=== PATIENT | male | born 1970 | race Caucasian/White ===

== ENCOUNTER → 2020-04-24 09:06 | Outpatient (BNVA) | payer BC, SELFPAY | PROVIDERS: PCP Internal Medicine; Visit Provider Urology | DX: N40.1 Benign prostatic hyperplasia with lower urinary tract symptoms (principal); R35.1 Nocturia; N20.0 Calculus of kidney | CPT/HCPCS: 51798; 81002 ==

== ENCOUNTER 2022-11-08 09:30 | Emergency (ER) | payer BC, SELFPAY ==
--- NOTE | ~2022-11-08 | CT_ITS ---
EXAMINATION: CT CERVICAL SPINE WITHOUT CONTRAST CLINICAL INFORMATION: Status post fall, dizziness. COMPARISON: None available. TECHNIQUE: Multiple axial images of the cervical spine were obtained without the demonstration of intravenous contrast. Coronal and sagittal reformatted images were obtained. This CT examination was performed using dose optimization techniques as appropriate, variously including the following: *Automated exposure control *Adjustment of mA and/or kV according to patient size (this includes techniques or standardized protocols for targeted exams where dose is matched to indication/reason for exam; i.e. extremities or head) *Use of iterative reconstruction technique DLP: 543.63 mGy-cm FINDINGS: There is straightening of the normal cervical lordosis with normal spinal alignment. Mild to moderate degenerative disc disease is seen from C4-C5 to C6-C7 with disc space narrowing and marginal osteophyte formation. Mild bilateral neural foraminal narrowing is seen at C6-C7. The odontoid process is intact with mild articulating degenerative changes. The facet joints are unremarkable. The spinous and transverse processes are intact. The cervical soft tissues are unremarkable. The visualized thyroid gland is unremarkable. The lung apices are clear. CT/CT cervical spine wo IV con IMPRESSION: 1. Straightening of the normal cervical lordosis may be secondary to positioning and/or muscle spasm. 2. Mild to moderate multilevel degenerative changes without acute abnormality.
--- NOTE | ~2022-11-08 | CT_ITS ---
EXAMINATION: CT HEAD WITHOUT CONTRAST CLINICAL INFORMATION: Status post fall, dizziness. COMPARISON: None available. TECHNIQUE: Contiguous axial imaging was performed from the skull base to vertex without intravenous administration of contrast. Coronal and sagittal reformatted images were obtained. This CT examination was performed using dose optimization techniques as appropriate, variously including the following: *Automated exposure control *Adjustment of mA and/or kV according to patient size (this includes techniques or standardized protocols for targeted exams where dose is matched to indication/reason for exam; i.e. extremities or head) *Use of iterative reconstruction technique DLP: 847.87 mGy-cm FINDINGS: The cortical sulci are normal. The lateral ventricles are symmetrical. Incidental patent cava septum pellucidum et vergae. The third and fourth ventricles are in their normal midline position. The basilar and prepontine cisterns are unremarkable. There is no acute intra or extracerebral abnormality. There is no mass effect or midline shift. Sections through the bony calvarium are unremarkable. The paranasal sinuses are clear. The bony orbits and orbital contents are unremarkable. CT/CT head/brain wo IV con IMPRESSION: No acute intracranial pathology.
--- NOTE | ~2022-11-08 | XR_ITS ---
EXAMINATION: XR HIP, RIGHT CLINICAL INFORMATION: Right hip pain. COMPARISON: None available. TECHNIQUE: Two views of the right hip. FINDINGS: Mild right hip degenerative joint changes are seen superiorly in the joint is no acute fracture or dislocation. The bony pelvis is intact. The soft tissues are unremarkable. XR/XR hip RT w PEL1V IMPRESSION: Mild right hip osteoarthritis. No acute fracture.
[2022-11-08 09:32] VITALS: BP 151/100; PULSE 68; RESP 16; TEMP 36; O2SAT 97; BMI 30.7
--- NOTE | 2022-11-08 11:32 | ED_ITS ---
HPI - General Adult General Chief complaint: Fall Stated complaint: Fall off ladder T-1/Dizziness Time Seen by Provider: 11/08/22 11:31 Source: patient Mode of arrival: ambulatory Limitations: no limitations History of Present Illness HPI narrative: Patient is a 52-year-old male with history of BPH presenting to the emergency department with complaint of dizziness and right hip pain after falling 3-3.5 feet off of a ladder yesterday. States that his foot slipped and he fell onto his right side. He is unsure if he hit his head but denies loss of consciousness and states that he got up immediately and went inside his house. Reports that he was able to ambulate yesterday but when he woke this morning his right hip pain had increased. He also reports new onset dizziness since this morning. Denies headache or changes in vision. Denies neck or back pain. He is not anticoagulated. He took ibuprofen at home prior to arrival this morning. complaint: right hip pain, dizziness Onset (ago): hour(s) Location: pelvis Radiation: non-radiation Severity: severe Severity scale (1-10): 10 Quality: aching Pain Consistency: constant Relieving factors: rest Exacerbating factors: movement Associated symptoms: other (dizziness) Treatments prior to arrival: NSAID Related Data Previous Rx's Medication Instructions Recorded tamsulosin 0.4 mg capsule 0.4 mg PO BEDTIME #30 caps 04/24/20 vardenafil 10 mg tablet 10 mg PO DAILY PRN sexual activity 10/27/20 30 days #6 tabs meclizine 25 mg tablet 25 mg PO BID PRN dizziness #10 tabs 11/08/22 Allergies Allergy/AdvReac Type Severity Reaction Status Date / Time No Known Allergies Allergy Unverified 12/20/19 15:41 Review of Systems Review of Systems: As per HPI. Yes all other systems are reviewed and are negative Constitutional: Constitutional: Reports as per HPI [facility] Past Medical History Medical History BPH associated with nocturia History of renal calculi Renal stone Social History Social History Alcohol intake: never Smoked in Last 30 Days: No Use of substances other than those prescribed or required for medical reasons: No Advance Directives: No Advance Directives Information Provided: No Physical Exam ED Vital Signs: Vital Signs - 24 hr 11/08/22 09:32 11/08/22 12:08 11/08/22 12:19 Temperature 96.8 F 98.2 F 98.1 F Pulse Rate 68 67 69 Respiratory Rate 16 14 16 Blood Pressure 151/100 H 128/78 123/68 Pulse Oximetry 97 95 98 Oxygen Delivery Method Room Air Room Air 11/08/22 12:19 Temperature 98.1 F Pulse Rate 66 Respiratory Rate 16 Blood Pressure 123/68 Pulse Oximetry 96 Oxygen Delivery Method Room Air BMI result Body Mass Index 30.7 Vital signs have been reviewed and appear to be correct. Blood pressure elevated. Heart rate normal. Respiratory rate normal. Temperature normal. Oxygen saturation normal. Const General: cooperative, healthy appearing and no acute distress Orientation/consciousness: oriented to person, oriented to place, oriented to time and patient oriented x3 Limitations: no limitations HENMT Head: Yes normal to inspection, Yes No palpable skull fracture present, Yes normocephalic, Yes atraumatic, No Jennings's sign, Yes contusion, No raccoon eyes and No periorbital ecchymosis Ears: external ears normal and TM's normal bilaterally General nose exam: Normal external nose present, Normal nares present and Normal septum present Face and sinus: Yes face symmetric Mouth: oropharynx normal and moist mucous membranes Throat: Yes uvula midline Eyes Pupils: Equal, round and reactive pupils present Neck Neck: Yes normal visual inspection and Yes supple Resp Effort & Inspection: normal respiratory effort and able to speak in complete sentences Auscultation: clear to auscultation bilaterally Cardio Rate: regular rate Rhythm: regular rhythm Heart sounds: S1 normal heart sound present and S2 normal heart sound present GI Palpation (GI): Soft to palpation and nontender Auscultation: normoactive bowel sounds General: Yes no CVA tenderness Back/Spine/Pelvis Back: no CVA tenderness Cervical Spine: No Cervical spine tenderness and No step off deformity Thoracic/Lumbar Spine: No thoracic spinal tenderness and No lumbar spinal t enderness Pelvis: no pain with anterior-posterior compression and no pain with lateral compression Skin General skin exam: elasticity normal and turgor normal Neuro General: oriented to person, oriented to place, oriented to time, patient oriented x3, tone normal, moves all extremities, no focal motor deficits, CN's II-XI intact bilaterally and deep tendon reflexes 2+ bilaterally Cranial nerves: Yes Equal, round and reactive pupils present Cognition (Neuro): normal cognition Motor exam (neuro): 5/5 motor strength present throughout, Pronator motor function not present, Normal motor muscle tone present throughout and Motor abnormalities not present Sensory Exam: Normal double simultaneous stimulation for sensation Extrem General: Yes full ROM, Yes no pedal edema and Yes no calf tenderness Right lower extremity: normal to inspection, full ROM, normal capillary refill, hip/thigh Details: normal to inspection and normal ROM; no swelling, no ecchymosis and no deformity and knee Details: normal to inspection and normal ROM Psych Mental Status: mental status grossly normal Affect: normal affect Thought process: Normal thought process present Medications Administered Discontinued Medications Generic Name Dose Route Start Last Admin Trade Name Freq PRN Reason Stop Dose Admin Acetaminophen 975 mg 11/08/22 11:46 11/08/22 12:27 Acetaminophen 325 Mg Tablet PO 11/08/22 11:47 975 mg ONCE ONE Administration Meclizine HCl 25 mg 11/08/22 13:04 11/08/22 13:09 Meclizine Hcl 25 Mg Tablet PO 11/08/22 13:05 25 mg ONCE ONE Administration Medical Decision Making Medical Decision Making [facility] Narrative: Patient is a 52-year-old male with history of BPH presenting to the emergency department with complaint of dizziness and right hip pain after falling 3-3.5 feet off of a ladder yesterday. On exam patient is awake, A+Ox3, VS WNL, afebrile, normal neurological exam without focal deficits, no nystagmus, no midline spinal tenderness, + right hip tenderness to palpation, full range of motion and 5/5 strength. Given reported symptoms and physical exam findings, initial differential includes ICH, skull fracture, cervical fracture, hip fracture, hip contusion. 12:56 X-ray/CT notable for no acute intracranial pathology, degenerative cervical changes without acute abnormality, and mild right hip osteoarthritis without acute fracture. My interpretation is in agreement with the radiologist's interpretation. Patient continues to complain of dizziness, neuro exam normal, feel likely related to concussion. Will order meclizine and ensure patient is able to ambulate. 14:21 Patient reports improvement in dizziness after receiving meclizine and is able to ambulate with steady gait, states he feels ready for discharge home. Discussed concussion precautions with patient as well as strict return precautions. Will prescribe meclizine as needed for dizziness at home. Instructed patient to follow-up with PCP. Patient verbalized understanding of and agreement with plan. Differential Diagnosis Differential Diagnoses: The differential diagnosis associated with the presentation includes As per MDM. Independent Interpretation I performed an independent interpretation of an: Plain X-Ray and CT Scan Interpretation: no acute intracranial pathology, mild cervical degenerative changes, right hip osteoarthritis Radiology Impression Discussion of test interpretation with radiology: I have reviewed the radiologist's reading. Radiologist Impression: CT/CT head/brain wo IV con IMPRESSION: No acute intracranial pathology. CT/CT cervical spine wo IV con IMPRESSION: 1.? Straightening of the normal cervical lordosis may be secondary to positioning and/or muscle spasm. 2.? Mild to moderate multilevel degenerative changes without acute abnormality. XR/XR hip RT w PEL1V IMPRESSION: Mild right hip osteoarthritis. No acute fracture. External Record Review External record reviewed: Inpatient record, Office record and Outpatient record Prescription Management I considered prescription management with: Other (meclizine) Discharge Plan Discharge Clinical Impression: Concussion without loss of consciousness, Contusion of hip, right Patient Disposition: Home, Self-Care Instructions: Concussion (ED), Contusion in Adults (ED), Post Concussion Syndrome (ED), Hip Contusion (ED) Additional Instructions: You have been evaluated in the emergency department today for hip pain and dizziness after a fall. Your CT scan did not show signs of bleed or fractures in your head. Your x-ray did not show a fracture of the hip. We recommend you take 600 mg ibuprofen every 6 hours or Tylenol 650 mg every 6 hours as needed for pain. If needed, you can alternate these medications so that you take 1 medication every 3 hours. For instance, at noon take ibuprofen, then at 3:00 p.m. take Tylenol, then at 6:00 p.m. take ibuprofen. You are also being prescribed meclizine which you can use up to twice daily as needed for dizziness. Please schedule an appointment with for follow-up with your primary care provider as soon as possible. Return to the emergency department if you experience worsening or uncontrolled pain, vision changes, recurrent vomiting, difficulty with normal activities, abnormal behavior, difficulty walking, numbness, weakness, or any other concerning symptoms. If you have ongoing hip pain after 1-2 weeks you can follow up with orthopedics. Prescriptions: New meclizine 25 mg tablet 25 mg PO BID PRN (Reason: dizziness) Qty: 10 0RF No Action vardenafil 10 mg tablet 10 mg PO DAILY PRN (Reason: sexual activity) 30 Days Qty: 6 3RF tamsulosin 0.4 mg capsule 0.4 mg PO BEDTIME Qty: 30 6RF Referrals: [facility] [Provider Group]
[2022-11-08 12:08] VITALS: BP 128/78; PULSE 67; RESP 14; TEMP 36.8; O2SAT 95
[2022-11-08 12:19] VITALS: BP 123/68; PULSE 66; PULSE 69; RESP 16; TEMP 36.7; O2SAT 96; O2SAT 98
[2022-11-08] MEDS: Acetaminophen 325 MG TABLET 975 MG PO (12:27)
--- NOTE | 2022-11-08 12:29 | PC.NURSE ---
pt a&ox3, vss, pt coming in after falling off of ladder at home yesterday. pt states that he got lightheaded while on the ladder and slipped and fell. pt does not recall if he hit his head or not. pt verbalizes that he was not on the ground for a prolonged period of time. fall was not witness by anyone. pt is not on blood thinners. pt verbalizing 4/10 headache, lightheadedness and dizziness. pt states that the lightheadedness has been causing him difficulty walking. call omalley placed within reach. will continue to monitor.
--- NOTE | 2022-11-08 12:31 | PC.NURSE ---
medication administered per provider order.
[2022-11-08] MEDS: Meclizine HCl 25 MG TABLET PO (13:09)
--- NOTE | 2022-11-08 13:09 | PC.NURSE ---
medication administered per provider order.
--- NOTE | 2022-11-08 13:56 | PC.NURSE ---
pt's pain level reassessed - pt verbalizing / post medication administration. pt verbalizing that he still feels dizzy despite meclizine administration.
== END 2022-11-08 14:33 | disposition home or self-care (01) ==
PROVIDERS: Emergency Provider Emergency Medicine; PCP Internal Medicine
DX: S06.0X0A Concussion without loss of consciousness, initial encounter (principal); S70.01XA Contusion of right hip, initial encounter; W11.XXXA Fall on and from ladder, initial encounter; Y93.9 Activity, unspecified; Y92.009 Unspecified place in unspecified non-institutional (private) residence as the place of occurrence of the external cause; Y99.9 Unspecified external cause status; Z79.899 Other long term (current) drug therapy
CPT/HCPCS: 70450; 72125; 73502; 99284

== ENCOUNTER 2024-08-15 13:58 | Emergency (ER) | payer BC, SELFPAY ==
--- NOTE | ~2024-08-15 | XR_ITS ---
EXAMINATION: XR CHEST 2 VIEWS HISTORY: cough, syncope COMPARISON: There are no prior studies for comparison. FINDINGS: PA and lateral views of the chest are submitted. There are low lung volumes. The lungs are clear. There is no pleural effusion, pneumothorax, or pulmonary vascular congestion. The heart is normal in size. The bones are intact. XR/XR chest 2V IMPRESSION: Low lung volumes. The lungs are clear. Electronically signed by: Driss Mack MD 08/15/2024 03:02 PM EDT
--- NOTE | ~2024-08-15 | CT_ITS ---
EXAMINATION: CT HEAD WITHOUT IV CONTRAST HISTORY: fall with head strike after syncope. TECHNIQUE: Unenhanced helical CT of the head was performed per standard departmental protocol. Coronal and sagittal reformats of the head were also evaluated. One or more of the following techniques was used for dose reduction: Automated exposure control, adjustment of the mA and/or kV according to patient size, use of iterative reconstruction technique. DLP: 911 mGy-cm COMPARISON: Comparison is made with the prior examination dated 11/08/2022. FINDINGS: BRAIN: The brain parenchyma is unremarkable. There is normal feldman/white differentiation. The ventricular system is normal in size and configuration. Incidental note is made of a cavum septum pellucidum and cavum septum vergae, both normal variants. There is no mass effect or midline shift. No intra- or extra-axial fluid collections are identified. SINUSES: There are polyps versus mucous retention cysts in the bilateral maxillary sinuses. The mastoid air cells and middle ear cavities are well pneumatized. ORBITS: The visualized orbits are unremarkable. BONES/SOFT TISSUES: The extracranial soft tissues are unremarkable. The calvarium is intact. No suspicious lytic or sclerotic lesions. CT/CT head/brain wo IV con IMPRESSION: No acute intracranial abnormality. Electronically signed by: Driss Mack MD 08/15/2024 03:07 PM EDT
[2024-08-15 14:02] VITALS: BP 126/81; PULSE 88; RESP 16; TEMP 36.7; O2SAT 96; BMI 32.8
--- NOTE | 2024-08-15 14:06 | ED_ITS ---
HPI - General Adult General Chief complaint: Syncope Stated complaint: Head Injury Time Seen by Provider: 08/15/24 15:24 Source: patient and family (patient's ) Mode of arrival: ambulatory Limitations: no limitations History of Present Illness ED Provider: Shayna Britton PA-C HPI narrative: Patient is a 54 year old assigned male at with a history of BPH presenting to the emergency department today with a head laceration after a syncopal episode. Patient states that he had a coughing fit and passed out, hitting his head. Patient states that is feeling otherwise fine. Patient states that he has had this cough for 3 weeks and previously given tesslon pearls yet continues to cough. Patient denies any current dizziness, lightheadedness, abdominal pain, nausea, vomiting, fever, chills, blurry vision, double vision, loss of vision, chest pain, difficulty breathing, shortness of breath, back pain, night sweats, pain with urination, increased urinary frequency, increased urinary urgency, blood in his urine or stool, bowel incontinence, bladder incontinence, or any other complaints at this time. Relieving factors: none Exacerbating factors: none Associated symptoms: cough and syncope Treatments prior to arrival: other (Tesslon pearls) Related Data Previous Rx's ?Medication ?Instructions ?Recorded tamsulosin 0.4 mg capsule 0.4 mg PO BEDTIME #30 caps 04/24/20 vardenafil 10 mg tablet 10 mg PO DAILY PRN sexual activity 10/27/20 30 days #6 tabs meclizine 25 mg tablet 25 mg PO BID PRN dizziness #10 tabs 11/08/22 azithromycin 250 mg tablet See Rx Instructions PO .COMPLEX #6 08/15/24 tabs prednisone 20 mg tablet 20 mg PO DAILY 7 days #7 tabs 08/15/24 Allergies Allergy/AdvReac Type Severity Reaction Status Date / Time No Known Allergies Allergy Verified 08/15/24 14:09 Review of Systems 2 Constitutional: Constitutional: Reports no additional constitutional complaints, Denies chills, Denies fever(s), Reports headache(s) and Denies night sweats Eyes: Eyes: Reports no additional eye complaints, Denies blurry vision, Denies change in vision, Denies diplopia, Denies eye discharge, Denies loss of vision and Denies eye pain ENT: Denies dizziness and Reports headache(s) Cardiovascular: Cardiovascular: Reports no additional cardiovascular complaints, Denies chest pain, Reports syncope, Denies lightheadedness, Denies Loss of Consciousness and Denies dyspnea Respiratory: Respiratory: Reports no additional respiratory complaints, Reports cough and Denies dyspnea Gastrointestinal: Gastrointestinal: Reports no additional gastrointestinal complaints, Denies abdominal pain, Denies melena, Denies hematochezia, Denies change in bowel habits and Denies change in stool character Genitourinary: Genitourinary: Reports no additional male genitourinary complaints, Denies hematuria, Denies oliguria, Denies difficulty urinating, Denies dysuria, Denies urinary frequency, Denies urinary hesitancy, Denies urinary incontinence and Denies urinary urgency Musculoskeletal: Musculoskeletal: Reports no additional musculoskeletal complaints, Denies numbness and Denies tingling Neurologic: Denies dizziness, Reports syncope, Reports headache(s), Denies loss of vision, Denies numbness and Denies tingling Psychiatric: Psychiatric: Reports no additional psychiatric complaints Endocrine: Endocrine: Reports no additional endocrine complaints Hematologic/Lymphatic: Hematologic/Lymphatic: Reports no additional hematologic/lymphatic complaints Allergic/Immunologic: Allergic/Immunologic: Reports no additional allergic/immunologic complaints PMFSH Past Medical History Attestation statement: The following information was validated with the patient. (all information validated with the patient's ) Source: old records reviewed, obtained from family (patient's provided additional history and confirmed the history provided by the patient.) and nursing notes reviewed Medical History Renal stone BPH associated with nocturia History of renal calculi Social History Social History Alcohol intake: never Advance Directives: No Advance Directives Information Provided: No Physical Exam ED Vital Signs: Vital Signs - 24 hr 08/15/24 14:02 08/15/24 17:25 Temperature 98.1 F 98.6 F Pulse Rate 88 85 Respiratory Rate 16 16 Blood Pressure 126/81 127/83 Pulse Oximetry 96 95 Oxygen Delivery Method Room Air Room Air BMI result Body Mass Index 32.8 Const General: cooperative, no acute distress, alert and awake Nutritional Appearance: well nourished Orientation/consciousness: patient oriented x3 HENMT Ears: hearing grossly normal bilaterally and external ears normal General nose exam: Normal external nose present, no nasal discharge noted and no epistaxis Face images: 2 1. 2.5 cm laceration - no active bleeding Mouth: Normal oral and palatal mucosa present, no drooling and no muffled voice Eyes General: appearance normal, both eyes and all related structures Periorbital: periorbital findings normal Eyelids: Yes eyelids normal Conjunctivae: conjunctivae normal Pupils: Equal, round and reactive pupils present EOM: EOMs intact bilaterally Neck Neck: Yes normal visual inspection, Yes full ROM and Yes no lymphadenopathy Resp Effort & Inspection: normal respiratory effort and able to speak in complete sentences Neuro General: patient oriented x3, moves all extremities and CN's II-XI intact bilaterally Cranial nerves: Yes Equal, round and reactive pupils present Cognition (Neuro): normal cognition Extrem General: Yes normal to inspection, Yes full ROM and Yes capillary refill normal Psych Appearance: grossly normal Mental Status: mental status grossly normal Affect: normal affect Attitude: cooperative Thought process: Normal thought process present Thought content: Normal thought content present Insight: Good insight present (Psych) Course Course Course Narrative: This is a rapid medical exam performed by Eleazar Dumont NP: Additional HPI, ROS, PE not included below will be deferred to primary provider. Patient is a 54-year-old male presenting with injury to forehead, had a coughing episode that caused him severe dyspnea and he had a syncopal episode. Small lac R eyebrow. Tdap UTD. Plan: viral swabs, cxr, labs, EKG, CT head Medications Administered Discontinued Medications Generic Name Dose Route Start Last Admin Trade Name Freq PRN Reason Stop Dose Admin Acetaminophen 975 mg 08/15/24 15:38 08/15/24 16:00 Acetaminophen 325 Mg Tablet PO 08/15/24 15:39 975 mg ONCE ONE Administration Diphtheria/Tetanus/Acell Pertussis 0.5 ml 08/15/24 15:37 08/15/24 16:00 Diphth,Pertus(Acell),Tet Adult 0.5 Ml Syringe IM 08/15/24 15:38 0.5 ml .ONCE ONE Administration Lidocaine/Epinephrine/Tetracaine 1 ml 08/15/24 15:31 08/15/24 15:35 Lidocaine/Racepinep/Tetracaine 3 Ml Gel.Pf.Mary TOPICAL 05/14/25 15:32 1 ml ONCE ONE Administration Procedures Laceration Laceration 1: Site: face Side (If applicable): right Size (cm): 2.5 Description: linear Depth: simple, single layer Local Anesthetic: other anesthetic (LET) Pre-repair: irrigated extensively and deep structures intact Skin layer closed with: other (prolene) Size (cm): 6-0 Number of sutures: 2 Technique: simple, interrupted Medical Decision Making Medical Decision Making MDM Narrative: Patient is a 54 year old assigned male at with a history of BPH presenting to the emergency department today with a head laceration after a syncopal episode. Patient's physical exam was as noted in the physical exam portion of this note. Patient's blood work was unremarkable. Patient's EKG was unremarkable. Patient's head CT and chest x-ray showed no acute process. I explained my physical exam findings as well as all test results to the patient and the patient's . I answered all questions asked by the patient and the patient's . Patient's clinical presentation is most consistent with vasovagal syncope secondary to a coughing fit and a right facial laceration. Written consent for student performed laceration repair was obtained from the patient. Patient understood and consented that I, a Physician Sample Box Maker, would be monitoring my Physician Sample Box Maker zeny Jin as she completed the laceration repair. Patient's facial laceration was repaired, per procedure note, by U JAMAAL Jin, without incident. Given the patient's cough of 3 weeks, will treat with oral prednisone and azithromycin. I stressed the importance of the patient taking his medication as directed (either prescribed or as the over the counter packaging recommends). I stressed the importance of the patient following up with his primary care provider. I stressed the importance of the patient returning to the emergency department immediately if his symptoms were to worsen or if he were to develop any dizziness, shortness of breath, difficulty breathing, chest pain, blurry vision, loss of vision, nausea, vomiting, abdominal pain, fever, chills, back pain, or any other complaints. Patient and the patient's verbalized agreement and understanding with this treatment plan and discharge. Differential Diagnosis Differential Diagnoses: The differential diagnosis associated with the presentation includes Laceration Vasovagal syncope Cough Admission/Observation Consideration of admission/observation: Escalation of care including admission/observation considered Patient would have been admitted to the hospital had his work up had any findings where hospital admission was appropriate and his clinical presentation warranted hospital admission. Lab Data [facility] Lab Attestation statement: I reviewed the patient's lab results. My interpretation of these results are in the MDM Rationale portion of this note. 08/15/24 14:20 08/15/24 14:20 Labs: Lab Results 08/15/24 Range/Units 14:20 WBC 6.4 (4.8-10.8) X10*3/uL RBC 4.88 (4.60-5.80) X10*6/uL Hgb 14.4 (14.0-18.0) g/dl Hct 41.8 L (42.0-52.0) % MCV 85.7 (80.0-98.0) fL MCH 29.5 (27.0-33.0) pg MCHC 34.4 (31.0-36.0) g/dl RDW 13.9 (11.0-16.0) % Plt Count 245 (160-400) X10*3/uL MPV 9.4 (9.4-12.4) fL Immature Gran % (Auto) 0.6 H (0.0-0.4) % Neut % (Auto) 77.1 H (45-73) % Lymph % (Auto) 12.5 L (20-40) % Leake % (Auto) 6.9 (2-11) % Eos % (Auto) 2.4 (0-4) % Baso % (Auto) 0.5 (0-2) % Lymph # (Auto) 0.8 L (1.2-4.9) X10*3/uL Leake # (Auto) 0.4 (0.1-1.2) X10*3/uL Eos # (Auto) 0.2 (0.0-0.4) X10*3/uL Baso # (Auto) 0.0 (0.0-0.2) X10*3/uL Abs Immat Gran (auto) 0.04 H (0.00-0.03) X10*3/uL Absolute Neuts (auto) 4.9 (2.0-8.3) x10*3/uL Absolute Nucleated RBC 0.000 (0.0-0.012) X10*3/uL Nucleated RBC % (auto) 0.0 (0.0-0.2) /100WBC PT 11.5 (10.9-12.4) SEC INR 1.0 (0.9-1.1) D-Dimer High Sensitivty < 150 NG/ML Sodium 139 (135-145) mmol/L Potassium 4.0 (3.3-5.1) mmol/L Chloride 106 (96-108) mmol/L Carbon Dioxide 26 (22-29) mmol/L Anion Gap 11 L (12-20) BUN 12 (9-16) mg/dL Creatinine 0.93 (0.5-1.4) mg/dL Estim Creat Clear Calc 110.1 Estimated GFR > 60 Random Glucose 95 (60-115) mg/dL Calcium 8.9 (8.4-10.2) mg/dL Magnesium 2.0 (1.6-2.6) mg/dL Total Bilirubin 0.8 (0.0-1.0) mg/dL AST 32 (5-37) U/L ALT 64 H (0-40) U/L Alkaline Phosphatase 76 (39-117) U/L Troponin I High Sens < 2.7 (<3.5-35.0) ng/L Total Protein 7.3 (6.5-8.0) g/dL Albumin 4.3 (3.5-5.0) g/dL Influenza Type A (PCR) NEGATIVE (Negative) Influenza Type B (PCR) NEGATIVE (Negative) RSV RNA Qual (PCR) NEGATIVE (Negative) SARS-CoV-2 RNA (RT-PCR) NEGATIVE (Negative) Independent Interpretation I performed an independent interpretation of an: Plain X-Ray and CT Scan Interpretation: My interpretation is in agreement with the radiologist's impression of these imaging studies. L Report Number: [id number]: Total DLP = 911.00 mGy-cm EXAMINATION: CT HEAD WITHOUT IV CONTRAST HISTORY: fall with head strike after syncope. TECHNIQUE: Unenhanced helical CT of the head was performed per standard departmental protocol. Coronal and sagittal reformats of the head were also evaluated. One or more of the following techniques was used for dose reduction: Automated exposure control, adjustment of the mA and/or kv according to patient size, use of iterative reconstruction technique. DLP: 911 mGy-cm COMPARISON: Comparison is made with the prior examination dated 11/08/2022. FINDINGS: BRAIN: The brain parenchyma is unremarkable. There is normal feldman/white differentiation. The ventricular system is normal in size and configuration. Incidental note is made of a cavum septum pellucidum and cavum septum vergae, both normal variants. There is no mass effect or midline shift. No intra- or extra-axial fluid collections are identified. SINUSES: There are polyps versus mucous retention cysts in the bilateral maxillary sinuses. The mastoid air cells and middle ear cavities are well pneumatized. ORBITS: The visualized orbits are unremarkable. BONES/SOFT TISSUES: The extracranial soft tissues are unremarkable. The calvarium is intact. No suspicious lytic or sclerotic lesions. CT/CT head/brain wo IV con IMPRESSION: No acute intracranial abnormality. Electronically signed by: Driss Mack MD 08/15/2024 03:07 PM EDT RP Dictated By: Driss Mack MD Signed By: Electronically signed by Driss Mack MD 08/15/24 1507 EXAMINATION: XR CHEST 2 VIEWS HISTORY: cough, syncope COMPARISON: There are no prior studies for comparison. FINDINGS: PA and lateral views of the chest are submitted. There are low lung volumes. The lungs are clear. There is no pleural effusion, pneumothorax, or pulmonary vascular congestion. The heart is normal in size. The bones are intact. XR/XR chest 2V IMPRESSION: Low lung volumes. The lungs are clear. Electronically signed by: Driss Mack MD 08/15/2024 03:02 PM EDT RP Dictated By: Driss Mack MD Signed By: Electronically signed by Driss Mack MD 08/15/24 1502 I independently interpreted this EKG and am in agreement with the below findings: Vent. Rate: 86 BPM Atrial Rate: 86 BPM P-R Int: 182 ms QRS Dur: 92 ms QT Int: 338 ms P-R-T Axes: 47 23 31 degrees QTcB Int: 404 ms Normal sinus rhythm Normal ECG No previous ECGs available DD/ 1410 Radiology Impression Discussion of test interpretation with radiology: I have reviewed the radiologist's reading. Independent Historian Clinical information obtained from an independent historian. History obtained from or confirmed by: Spouse (patient's provided additional history and confirmed the history provided by the patient.) Discharge Plan Discharge Clinical Impression: Cough, Vasovagal syncope, Forehead laceration Patient Disposition: Home, Self-Care Instructions: Care For Your Stitches (DC), Laceration (DC), Safe Use of Cough and Cold Medicines (ED) Additional Instructions: Have your sutures removed in 7-10 days. Do NOT soak the affected area. After your sutures are removed and the scab falls off - apply sunscreen to the areas every day for 1 full year to avoid scarring. Follow up with your primary care provider. Return to the emergency department immediately if your symptoms worsen or if you develop any numbness, tingling, dizziness, shortness of breath, difficulty breathing, chest pain, blurry vision, loss of vision, nausea, vomiting, abdominal pain, fever, chills, back pain, or any other complaints. Please see the information below about our Patient Portal. If you are not yet enrolled in the [facility] Patient Portal, you will receive an enrollment email invitation following your visit to any [facility] [place] setting. You may also self-enroll in the Patient Portal by visiting our website: [email or web address] The following information is required to access the Patient Portal: - Your [facility] Medical Record Number - Your personal home email address (must match what is in your electronic medical record, Registration staff can assist with this) - Name - Date of Capabilities of the Patient Portal: - Message some providers - View upcoming appointments - Access your health summary, medical history, and visit history - View current conditions and allergies - View procedure and lab results - View your medications, including guidelines, side effects, and precautions - Complete pre-appointment questionnaires requested by your provider - Ready summary reports of your office visits and procedures To access the Patient Portal Mobile Mary, follow these directions: - Search My[employer]elBack in the Mary Store or Walk-in Appointment Scheduler Store - Download the Mary - Search for [facility] - Enter your login/password Prescriptions: New azithromycin 250 mg tablet See Rx Instructions .ROUTE .COMPLEX Qty: 6 0RF Rx Instructions: For 250 mg dose pack: take 500 mg today (day 1), then 250 mg for 4 days (days 2-5) prednisone 20 mg tablet 20 mg PO DAILY 7 Days Qty: 7 0RF No Action vardenafil 10 mg tablet 10 mg PO DAILY PRN (Reason: sexual activity) 30 Days Qty: 6 3RF meclizine 25 mg tablet 25 mg PO BID PRN (Reason: dizziness) Qty: 10 0RF tamsulosin 0.4 mg capsule 0.4 mg PO BEDTIME Qty: 30 6RF Referrals: Zunilda Shrestha MD [Primary Care Provider] - Interventions: ED Discharge Assessment Last Done: 08/15/24 17:25 Discharge Date/Time: 08/15/24 17:32 Print Language: Tajik
--- NOTE | 2024-08-15 14:08 | ECG_ITS ---
Test Reason : syncope Blood Pressure : */* mmHG Vent. Rate : 86 BPM Atrial Rate : 86 BPM P-R Int : 182 ms QRS Dur : 92 ms QT Int : 338 ms P-R-T Axes : 47 23 31 degrees QTcB Int : 404 ms Normal sinus rhythm Normal ECG No previous ECGs available Referred By: Valentina Dumont Electronically Signed By: TERELL DECKER MD
[2024-08-15 14:40] LABS: MANUAL DIFF FLAG NO
[2024-08-15 14:42] LABS: Basophils Percent Auto 0.5 % (0-2); Eosinophils Absolute Auto 0.2 X10*3/uL (0.0-0.4); Eosinophils Percent Auto 2.4 % (0-4); Hematocrit 41.8 % (42.0-52.0); Hemoglobin 14.4 g/dl (14.0-18.0); Imm Gran Abs Auto 0.04 X10*3/uL (0.00-0.03); Imm Gran Pct Auto 0.6 % (0.0-0.4); Lymphocytes Absolute Auto 0.8 X10*3/uL (1.2-4.9); Lymphocytes Percent Auto 12.5 % (20-40); Mean Corpuscular HGB Conc 34.4 g/dl (31.0-36.0); Mean Corpuscular Hemoglobin 29.5 pg (27.0-33.0); Mean Corpuscular Volume 85.7 fL (80.0-98.0); Mean Platelet Volume 9.4 fL (9.4-12.4); Monocytes Absolute Auto 0.4 X10*3/uL (0.1-1.2); Monocytes Percent Auto 6.9 % (2-11); Neutrophils Absolute Auto 4.9 x10*3/uL (2.0-8.3); Neutrophils Percent Auto 77.1 % (45-73); Platelet Count 245 X10*3/uL (160-400); Red Blood Count 4.88 X10*6/uL (4.60-5.80); Red Cell Distribution Width 13.9 % (11.0-16.0); White Blood Count 6.4 X10*3/uL (4.8-10.8)
[2024-08-15 14:50] LABS: Prothrombin Time 11.5 SEC (10.9-12.4)
[2024-08-15 15:01] LABS: Alanine Aminotransferase 64 U/L (0-40); Albumin Level 4.3 g/dL (3.5-5.0); Anion Gap 11 (12-20); Aspartate Amino Transferase 32 U/L (5-37); Bilirubin Total 0.8 mg/dL (0.0-1.0); Blood Urea Nitrogen 12 mg/dL (9-16); Calcium 8.9 mg/dL (8.4-10.2); Carbon Dioxide 26 mmol/L (22-29); Chloride 106 mmol/L (96-108); Creatinine Clr Calc Pharmacy 110.1; Estimated Glomerular Filt Rate > 60; Glucose Random 95 mg/dL (60-115); Sodium 139 mmol/L (135-145); Total Protein 7.3 g/dL (6.5-8.0)
[2024-08-15 15:09] LABS: Troponin-I High Sensitivity < 2.7 ng/L (<3.5-35.0)
[2024-08-15 15:19] LABS: Influenza A PCR NEGATIVE (Negative); Influenza B PCR NEGATIVE (Negative); Resp Syncy Virus RNA Qual PCR NEGATIVE (Negative); SARS COV2 PCR INHOUSE NEGATIVE (Negative)
[2024-08-15] MEDS: Lidocaine/Racepinep/Tetracaine 3 ML GEL.PF.APP 1 ML TOPICAL (15:35)
[2024-08-15 15:45] LABS: D Dimer High Sensitivity < 150 NG/ML
[2024-08-15] MEDS: Acetaminophen 325 MG TABLET 975 MG PO (16:00)
[2024-08-15] MEDS: Diphth,Pertus(ACell),Tet Adult 0.5 ML SYRINGE IM (16:00)
[2024-08-15 16:13] LABS: Alkaline Phosphatase 76 U/L (39-117)
[2024-08-15 17:25] VITALS: BP 127/83; PULSE 85; RESP 16; TEMP 37; O2SAT 95
== END 2024-08-15 17:32 | disposition home or self-care (01) ==
PROVIDERS: Physician Assistant Medical; Registered Nurse Emergency; Emergency Provider Emergency Medicine; PCP Internal Medicine
DX: S01.81XA Laceration without foreign body of other part of head, initial encounter (principal); R55 Syncope and collapse; R06.02 Shortness of breath; R51.9 Headache, unspecified; R05.9 Cough, unspecified; X58.XXXA Exposure to other specified factors, initial encounter; W45.8XXA Other foreign body or object entering through skin, initial encounter; Y93.9 Activity, unspecified; Y92.9 Unspecified place or not applicable; Y99.8 Other external cause status; Z23 Encounter for immunization; Z03.818 Encounter for observation for suspected exposure to other biological agents ruled out; Z79.899 Other long term (current) drug therapy
CPT/HCPCS: 0241U; 12011; 70450; 71046; 80053; 83735; 84484; 85025; 85379; 85610; 90471; 90715; 93005; 99283; 99284

== ENCOUNTER → 2024-08-15 14:08 | Outpatient (BNV) | payer BC, SELFPAY | PROVIDERS: Emergency Provider Emergency Medicine; PCP Internal Medicine; Visit Provider Internal Medicine Cardiovascular Disease | DX: R55 Syncope and collapse (principal) | CPT/HCPCS: 93010 ==

== ENCOUNTER → 2024-08-15 14:08 | Outpatient (BNV) | payer BC, SELFPAY | PROVIDERS: PCP Internal Medicine; Visit Provider Radiology Diagnostic Radiology | DX: S09.90XA Unspecified injury of head, initial encounter (principal); R55 Syncope and collapse; W19.XXXA Unspecified fall, initial encounter; J98.4 Other disorders of lung | CPT/HCPCS: 70450; 71046 ==

== ENCOUNTER 2024-12-12 14:03 | Outpatient (AMB) | payer BC, SELFPAY | END 2024-12-12 14:05 | disposition home or self-care (01) | LOC: HO.HMGAL 14:03 | PROVIDERS: PCP Internal Medicine; Visit Provider Registered Nurse Emergency | DX: J30.89 Other allergic rhinitis (principal) | CPT/HCPCS: 95117; 95165 ==

== ENCOUNTER 2025-02-20 11:41 | Outpatient (AMB) | payer BC, SELFPAY | END 2025-02-20 11:41 | disposition home or self-care (01) | LOC: HO.HMGAL 11:41 | PROVIDERS: PCP Internal Medicine; Visit Provider Registered Nurse Emergency | DX: J30.89 Other allergic rhinitis (principal) | CPT/HCPCS: 95117; 95165 ==